=== PATIENT | female | born 1990 | race Caucasian/White ===

== ENCOUNTER 2017-03-19 12:28 | Emergency (ER) | payer SELFPAY | END 2017-03-19 13:10 | disposition home or self-care (01) | LOC: SCSER 12:28 | DX: L02.31 Cutaneous abscess of buttock (principal); F41.9 Anxiety disorder, unspecified; F17.210 Nicotine dependence, cigarettes, uncomplicated | CPT/HCPCS: 99282 ==

== ENCOUNTER 2017-06-28 17:40 | Emergency (ER) | payer SELFPAY ==
--- NOTE | 2017-06-28 19:09 | RAD ---
PA AND LATERAL OF THE CHEST: 06/28/17 INDICATION: Cough, fever and chest pain. COMPARISON: Prior exam dated 12/14/05. FINDINGS: No focal consolidation is evident. Heart size and pulmonary vasculature are is within normal limits. No pleural effusion is grossly evident. No acute osseous abnormality is evident. IMPRESSION: No acute abnormality. POS: [facility]
== END 2017-06-28 18:56 | disposition home or self-care (01) ==
LOC: SCSER 17:40
DX: J45.909 Unspecified asthma, uncomplicated (principal); F41.9 Anxiety disorder, unspecified; Z87.891 Personal history of nicotine dependence
CPT/HCPCS: 71046

== ENCOUNTER 2018-06-28 17:49 | Emergency (ER) | payer SELFPAY ==
[2018-06-28] MEDS ORDERED: diphenhydrAMINE 50 MG/ML VIAL ONE (18:03)
[2018-06-28] MEDS ORDERED: Ondansetron PF 4 MG/2 ML Vial ONE ×2 (18:03→18:49)
[2018-06-28 18:35] LABS: Anisocytosis SLIGHT = 6-15 cells (100X) (0-5/hpf); Band 2 % (5-11); Hemoglobin 12.9 g/dL (12.0-16.0); Lymphocytes 5 % (21-51); MDiff Complete? YES; Mean Corpuscular HGB CONC 32.3 g/dL (32.0-36.0); Mean Corpuscular Hemoglobin 25.9 pg (27.0-31.0); Mean Corpuscular Volume 80.2 fL (78.0-98.0); Mean Platelet Volume 7.1 fL (7.4-10.4); Monocytes 2 % (0-10); Neutrophil 90 % (42-75); Platelet Count 234 thou/uL (130-400); Platelet Morphology Comment Appears Adequate; RBC Distribution Width 14.2 % (11.5-14.5); Reactive Lymphocytes 1 % (0-10); Red Blood Cell (RBC) Count 4.98 mill/uL (4.20-5.40); Toxic Granulation SLIGHT; Vacuoles SLIGHT
[2018-06-28 18:43] LABS: ALT (SGPT) 16 U/L (8-55); AST (SGOT) 15 U/L (5-34); Albumin 4.5 g/dL (3.5-5.0); Alkaline Phosphatase 64 U/L (40-150); Anion Gap 18 mmol/L (10-20); BUN (Urea Nitrogen) 9 mg/dL (7.0-18.7); Bilirubin, Total 0.6 mg/dL (0.2-1.2); Calc. Creatinine Clearance 0 mL/min (70-130); Calcium 9.9 mg/dL (7.8-10.44); Carbon Dioxide 19 mmol/L (22-29); Chloride 105 mmol/L (98-107); Estimated GFR-MDRD Greater than 90; Globulin 3.3 g/dL (2.4-3.5); Glucose 113 mg/dL (70-105); Lipase 19 U/L (8-78); Potassium 3.7 mmol/L (3.5-5.1); Protein, Total 7.8 g/dL (6.0-8.3); Sodium 138 mmol/L (136-145)
--- NOTE | 2018-06-28 19:23 | ULT ---
Exam: Pelvic ultrasound including Transabdominal, And Vascular Duplex with color and spectral Doppler imag ing: HISTORY: 7 weeks nausea and vomiting, upper abdominal pain COMPARISON: None FINDINGS: The uterus is9.8 x 6.3 x 6.3 cm. Endometrial thickness:Within normal limits for . Right ovary:3.1 x 2.7 x 1.7 cm Left ovary:2.4 x 1.4 x 1.4 cm No abscess or abnormal fluid collection. Single early viable intrauterine . heart rate 144 bpm. [place]-rump length 1.2 cm--7 weeks 3 days Gestational sac diameter 3 cm--8 weeks 1 day No extra chorionic hemorrhage Vascular duplex examination demonstrates no evidence for ovarian torsion IMPRESSION: Viable early intrauterine at 7 weeks 6 days EDC 02/08/2019 No other significant acute process.
[2018-06-28 19:31] LABS: Bilirubin Small (Negative); Blood, Urine Negative (Negative); Clarity Cloudy (Clear); Glucose, Urine (Dipstick) Negative (Negative); Leukocyte Negative (Negative); Nitrite Negative (Negative); Protein, Urine (Dipstick) 30 mg/dL (Neg-Trace); Specific Gravity, Urine 1.025 (1.005-1.030); Urobilinogen 0.2 mg/dL (0.2-1.0)
[2018-06-28 19:36] LABS: Bacteria/HPF Rare-Few HPF (None Seen); Hyaline Casts/LPF 0-3 HYALINE CAST LPF (0-3 Hyaline); RBC/HPF 0-3 HPF (0-3); WBC/HPF 0-3 HPF (0-3)
== END 2018-06-28 20:25 | disposition home or self-care (01) ==
LOC: SCSER 17:49
DX: O21.9 Vomiting of pregnancy, unspecified (principal); O99.341 Other mental disorders complicating pregnancy, first trimester; F41.9 Anxiety disorder, unspecified; Z87.891 Personal history of nicotine dependence; Z3A.01 Less than 8 weeks gestation of pregnancy
CPT/HCPCS: 76856; 80053; 81003; 81015; 83690; 84702; 85025; 93976; 96361; 96374; 96375; 96376; J1200; J2405